=== PATIENT | male | born 1990 | race African-American/Black ===

== ENCOUNTER 2021-04-23 14:50 | Emergency (ER) | payer SELFPAY ==
[2021-04-23 15:15] LABS: Absolute Lymphocytes (CBC) 1.8 K/uL (0.7-4.9); Basophils % 0.4 % (0-1.3); Hematocrit 51.6 % (39.6-49.0); Lymphocytes % 20.8 % (15.3-44.8); MPV 7.7 fL (7.6-11.3); RBC Red Blood Cell Count 5.81 M/uL (4.33-5.43)
[2021-04-23] MEDS ORDERED: NA CHLORIDE 0.9% 1,000 ML ONE ×2 (15:26→16:23)
[2021-04-23 15:36] LABS: Bilirubin Direct 0.2 mg/dL (0-0.2); Bilirubin Total 0.9 mg/dL (0.2-1.0); Potassium 3.4 mmol/L (3.5-5.1); Protein, Total 9.2 g/dL (6.4-8.2)
--- NOTE | 2021-04-23 16:27 | RAD REPORT ---
EXAM DESCRIPTION: CTAbdomen Pelvis W Contrast - 04/23/2021 4:01 pm CLINICAL HISTORY: Abdominal pain. ABD PAIN COMPARISON: No comparisons TECHNIQUE: Biphasic CT imaging of the abdomen and pelvis was performed with 100 ml non-ionic IV cont rast. All CT scans are performed using dose optimization technique as appropriate and may include automated exposure control or mA/KV adjustment according to patient size. FINDINGS: The lung bases are clear. The liver, spleen, pancreas, adrenal glands and kidneys are within normal limits. No bowel obstruction, free air, free fluid or abscess. The appendix is normal. No evidence of signi ficant lymphadenopathy. No suspicious bony findings. IMPRESSION: No acute intra-abdominal or pelvic finding.
--- NOTE | 2021-04-23 18:20 | ER ---
Nurse's Notes [facility] Name: Abrahan Zarate Age: 30 yrs Sex: Male : 1990 Arrival Date: 04/23/2021 Time: 14:51 Bed 6 Private MD: Diagnosis: Dehydration Presentation: 04/23 14:51 Chief complaint: Patient states: he has been having left lower quadrant pain off and on ap3 for the last few days, but today he was working in the yard and it got a lot worse. Patient states pain is currently a 7/10. Coronavirus screen: At this time, the client does not indicate any symptoms associated with coronavirus-19. Ebola Screen: No symptoms or risks identified at this time. Initial Sepsis Screen: Does the patient meet any 2 criteria? No. Patient's initial sepsis screen is negative. Does the patient have a suspected source of infection? No. Patient's initial sepsis screen is negative. Risk Assessment: Do you want to hurt yourself or someone else? Patient reports no desire to harm self or others. Onset of symptoms was April 21, 2021. Care prior to arrival: Medication(s) given: Normal saline infusion, 1000 mL, IV initiated. 20 GA, in the right antecubital area. 14:51 Method Of Arrival: EMS: [facility] ap3 14:51 Acuity: MORGAN 3 ap3 Triage Assessment: 14:54 General: Appears in no apparent distress. uncomfortable, Behavior is calm, cooperative, ap3 appropriate for age. General:. Pain: Complains of pain in left lower quadrant Pain does not radiate. Pain currently is 7 out of 10 on a pain scale. Pain began gradually, 2-3 days ago. Neuro: Level of Consciousness is awake, alert, obeys commands, Oriented to person, place, time, situation, Appropriate for age Moves all extremities. Gait is steady, Speech is normal. Cardiovascular: Capillary refill < 3 seconds Patient's skin is warm and dry. Respiratory: Airway is patent Respiratory effort is even, unlabored, Respiratory pattern is regular, symmetrical. GI: Abdomen is round Bowel sounds present X 4 quads. Abd is soft X 4 quads Abdomen is tender to palpation in left lower quadrant. : No signs and/or symptoms were reported regarding the genitourinary system. Historical: - Allergies: 14:54 No Known Allergies; ap3 - Home Meds: 14:54 None [Active]; ap3 - PMHx: 14:54 None; ap3 - PSHx: 14:54 None; ap3 - Immunization history:: Adult Immunizations up to date, Client reports receiving the 2nd dose of the Covid vaccine, Date received: January 2021. - Social history:: Smoking status: Patient reports the use of cigarette tobacco products, smokes one-half pack cigarettes per day. Screenin:56 Abuse screen: Denies threats or abuse. Nutritional screening: No deficits noted. ap3 Tuberculosis screening: No symptoms or risk factors identified. Fall Risk None identified. Assessment: 16:00 Reassessment: No changes from previously documented assessment. Patient and/or family ll1 updated on plan of care and expected duration. Pain level reassessed. Patient is alert, oriented x 3, equal unlabored respirations, skin warm/dry/pink. 17:00 Reassessment: No changes from previously documented assessment. Patient and/or family ll1 updated on plan of care and expected duration. Pain level reassessed. Patient is alert, oriented x 3, equal unlabored respirations, skin warm/dry/pink. 18:00 Reassessment: No changes from previously documented assessment. Patient and/or family ll1 updated on plan of care and expected duration. Pain level reassessed. Patient is alert, oriented x 3, equal unlabored respirations, skin warm/dry/pink. Patient states feeling better. 18:48 Reassessment: No changes from previously documented assessment. Patient and/or family ll1 updated on plan of care and expected duration. Pain level reassessed. Patient is alert, oriented x 3, equal unlabored respirations, skin warm/dry/pink. Patient states feeling better. Patient states symptoms have improved. states he is ready to go home.. Vital Signs: 14:51 BP 137 / 98 LA (auto/lg); Pulse 85; Resp 19; Temp 98.2(O); Pulse Ox 97% on R/A; Weight ap3 124.28 kg; Height 6 ft. 1 in. (185.42 cm); Pain 7/10; 16:25 BP 131 / 91; Pulse 69; Resp 18; Pulse Ox 97% on R/A; ll1 18:48 BP 146 / 85; Pulse 67; Resp 17; Pulse Ox 97% on R/A; ll1 14:51 Body Mass Index 36.15 (124.28 kg, 185.42 cm) ap3 ED Course: 14:51 Patient arrived in ED. ap3 14:54 Triage completed. ap3 14:56 Pauline Pabon, RN is Primary Nurse. ap3 14:56 Arm band placed on right wrist. ap3 14:56 Patient has correct armband on for positive identification. Bed in low position. Call ap3 light in reach. Side rails up X2. Pulse ox on. NIBP on. Door closed. Noise minimized. 14:57 Anival Alba MD is Attending Physician. kdr 14:58 Maintain EMS IV. Dressing intact. Good blood return noted. Site clean \T\ dry. Gauge \T\ ap 3 site: 20g right AC. 15:29 Rudi Paniagua, KHANH is Primary Nurse. ll1 16:01 CT Abd/Pelvis - IV Contrast Only In Process Unspecified. EDMS 18:30 Inserted saline lock: 22 gauge in left antecubital area, using aseptic technique. Blood ll1 collected. 18:43 IV discontinued, intact, bleeding controlled, No redness/swelling at site. Pressure ll1 dressing applied. 18:49 Chem 7 Sent. ll1 Administered Medications: 15:28 Drug: NS 0.9% 1000 ml Route: IV; Rate: 1 bolus; Site: right antecubital; ll1 15:59 Follow up: Response: No adverse reaction; IV Status: Completed infusion; IV Intake: ll1 960ml 18:47 Drug: NS 0.9% 1000 ml Route: IV; Rate: 1 bolus; Site: left antecubital; ll1 Intake: 15:59 IV: 960ml; Total: 960ml. ll1 Outcome: 18:20 Discharge ordered by . kdr 19:44 Patient left the ED. cw2 Signatures: Dispatcher [employer] EDMS Anival Alba MD MD kdr Pauline Pabon RN RN ap3 Rudi Paniagua RN RN ll1 Luke Zarate RN RN cw2 Corrections: (The following items were deleted from the chart) 18:47 16:24 NS 0.9% 1000 ml IV at 1 bolus in right antecubital ll1 ll1 18:47 18:25 Response: No adverse reaction; IV Status: Completed infusion; IV Intake: 1000ml ll1 ll1
--- NOTE | 2021-04-23 18:21 | EDPHYS ---
Physician Documentation [facility] Name: Abrahan Zarate Age: 30 yrs Sex: Male : 1990 Arrival Date: 04/23/2021 Time: 14:51 Bed 6 Private MD: ED Physician Anival Alba HPI: 04/23 16:23 This 38 yrs old Black Male presents to ER via EMS with complaints of Left lower kdr quadrant abdominal pain. 16:23 The patient presents with abdominal pain in the left lower quadrant. Onset: The kdr symptoms/episode began/occurred gradually, 2 day(s) ago. The symptoms do not radiate. Associated signs and symptoms: Pertinent positives: diarrhea, Pertinent negatives: nausea and vomiting, blood in stools, chest pain, constipation, dysuria, fever. The symptoms are described as achy, steady. Modifying factors: The symptoms are alleviated by nothing, the symptoms are aggravated by touching the area, walking. Severity of pain: At its worst the pain was moderate in the emergency department the pain has improved moderately. The patient has not experienced similar symptoms in the past. The patient has not recently seen a physician. Historical: - Allergies: 14:54 No Known Allergies; ap3 - Home Meds: 14:54 None [Active]; ap3 - PMHx: 14:54 None; ap3 - PSHx: 14:54 None; ap3 - Immunization history:: Adult Immunizations up to date, Client reports receiving the 2nd dose of the Covid vaccine, Date received: January 2021. - Social history:: Smoking status: Patient reports the use of cigarette tobacco products, smokes one-half pack cigarettes per day. ROS: 16:23 Constitutional: Negative for fever, chills, and weight loss, Eyes: Negative for injury, kdr pain, redness, and discharge, ENT: Negative for injury, pain, and discharge, Neck: Negative for injury, pain, and swelling, Cardiovascular: Negative for chest pain, palpitations, and edema, Respiratory: Negative for shortness of breath, cough, wheezing, and pleuritic chest pain, Back: Negative for injury and pain, : Negative for injury, bleeding, discharge, and swelling, MS/Extremity: Negative for injury and deformity, Skin: Negative for injury, rash, and discoloration, Neuro: Negative for headache, weakness, numbness, tingling, and seizure activity. Psych: Negative for depression, anxiety, suicide ideation, homicidal ideation, and hallucinations, Allergy/Immunology: Negative for hives, rash, and allergies, Endocrine: Negative for neck swelling, polydipsia, polyuria, polyphagia, and marked weight changes, Hematologic/Lymphatic: Negative for swollen nodes, abnormal bleeding, and unusual bruising. 16:23 Abdomen/GI: Positive for abdominal pain, diarrhea, Negative for abdominal distension, anorexia, dysphagia, hematemesis, black/tarry stool, rectal pain, rectal bleeding, bowel incontinence. Exam: 16:23 Constitutional: This is a well developed, well nourished patient who is awake, alert, kdr and in no acute distress. Head/Face: Normocephalic, atraumatic. Eyes: Pupils equal round and reactive to light, extra-ocular motions intact. Lids and lashes normal. Conjunctiva and sclera are non-icteric and not injected. Cornea within normal limits. Periorbital areas with no swelling, redness, or edema. Neck: Trachea midline, no thyromegaly or masses palpated, and no cervical lymphadenopathy. Supple, full range of motion without nuchal rigidity, or vertebral point tenderness. No Meningismus. Chest/axilla: Normal chest wall appearance and motion. Nontender with no deformity. No lesions are appreciated. Cardiovascular: Regular rate and rhythm with a normal S1 and S2. No gallops, murmurs, or rubs. Normal PMI, no JVD. No pulse deficits. Respiratory: Lungs have equal breath sounds bilaterally, clear to auscultation and percussion. No rales, rhonchi or wheezes noted. No increased work of breathing, no retractions or nasal flaring. Back: No spinal tenderness. No costovertebral tenderness. Full range of motion. Skin: Warm, dry with normal turgor. Normal color with no rashes, no lesions, and no evidence of cellulitis. MS/ Extremity: Pulses equal, no cyanosis. Neurovascular intact. Full, normal range of motion. Neuro: Awake and alert, GCS 15, oriented to person, place, time, and situation. Cranial nerves II-XII grossly intact. Motor strength 5/5 in all extremities. Sensory grossly intact. Cerebellar exam normal. Normal gait. Psych: Awake, alert, with orientation to person, place and time. Behavior, mood, and affect are within normal limits. 16:23 Abdomen/GI: Inspection: abdomen appears normal, Bowel sounds: active, Palpation: soft, mild abdominal tenderness, in the left lower quadrant. Vital Signs: 14:51 BP 137 / 98 LA (auto/lg); Pulse 85; Resp 19; Temp 98.2(O); Pulse Ox 97% on R/A; Weight ap3 124.28 kg; Height 6 ft. 1 in. (185.42 cm); Pain 7/10; 16:25 BP 131 / 91; Pulse 69; Resp 18; Pulse Ox 97% on R/A; ll1 18:48 BP 146 / 85; Pulse 67; Resp 17; Pulse Ox 97% on R/A; ll1 14:51 Body Mass Index 36.15 (124.28 kg, 185.42 cm) ap3 MDM: 16:23 Data reviewed: vital signs, nurses notes. Counseling: I had a detailed discussion with [facility] the patient and/or guardian regarding: the historical points, exam findings, and any diagnostic results supporting the discharge/admit diagnosis, lab results, radiology results. 18:20 Patient medically screened. [facility] 04/23 14:57 Order name: Basic Metabolic Panel; Complete Time: 16:28 [facility] 04/23 14:57 Order name: CBC with Diff; Complete Time: 16:28 [facility] 04/23 14:57 Order name: Hepatic Function; Complete Time: 16:28 [facility] 04/23 14:57 Order name: Lipase; Complete Time: 16:28 [facility] 04/23 14:57 Order name: Amylase, Serum; Complete Time: 16:28 ap3 04/23 14:57 Order name: IV Saline Lock; Complete Time: 14:57 [facility] 04/23 14:57 Order name: Labs collected and sent; Complete Time: 15:28 [facility] 04/23 14:57 Order name: CT Abd/Pelvis - IV Contrast Only; Complete Time: 18:19 [facility] 04/23 18:20 Order name: Chem 7; Complete Time: 19:03 [facility] Administered Medications: 15:28 Drug: NS 0.9% 1000 ml Route: IV; Rate: 1 bolus; Site: right antecubital; ll1 15:59 Follow up: Response: No adverse reaction; IV Status: Completed infusion; IV Intake: ll1 960ml 18:47 Drug: NS 0.9% 1000 ml Route: IV; Rate: 1 bolus; Site: left antecubital; ll1 Disposition Summary: 04/23/21 18:20 Discharge Ordered Location: Home kdr Problem: new kdr Symptoms: are unchanged kdr Condition: Stable kdr Diagnosis - Dehydration kdr Followup: kdr - With: Private Physician - When: 2 - 3 days - Reason: If symptoms return, Further diagnostic work-up, Recheck today's complaints, Continuance of care, Re-evaluation by your physician Discharge Instructions: - Discharge Summary Sheet kdr - Dehydration, Adult kdr Forms: - Medication Reconciliation Form kdr - Thank You Letter kdr Signatures: Dispatcher [employer] EDMS Anival Alba MD MD kdr Pauline Pabon RN RN ap3 Rudi Paniagua RN RN ll1 Corrections: (The following items were deleted from the chart) 14:58 14:57 HEPATIC FUNCTION+C.LAB.BRZ ordered. EDMS EDMS 14:58 14:57 LIPASE+C.LAB.BRZ ordered. EDMS EDMS
[2021-04-23 18:58] LABS: Potassium 3.8 mmol/L (3.5-5.1)
[2021-04-23 19:48] VITALS: TEMP 98.2; O2SAT 97
[2021-04-23 19:51] VITALS: BP 146/85
== END 2021-04-23 19:44 | disposition home or self-care (01) ==
LOC: EDBD 14:50 → ER 14:50
DX: E86.0 Dehydration (principal); F17.210 Nicotine dependence, cigarettes, uncomplicated
CPT/HCPCS: 36415; 74177; 80048; 80076; 82150; 83690; 85025; J7030; Q9967